=== PATIENT | male | born 2000 | race African-American/Black ===

== ENCOUNTER 2023-10-27 21:27 | Emergency (ER) | payer SELFPAY ==
[~2023-10-27] VITALS: Ht 177.8 cm; Wt 75.0 kg
[2023-10-27 21:37] VITALS: O2SAT 98
[2023-10-27 21:53] VITALS: BP 103/70; PULSE 64; RESP 18; TEMP 97.9; O2SAT 99
[2023-10-27] MEDS: KETOROLAC 30MG/ML VIAL IM ONE (23:00)
== END 2023-10-28 02:58 | disposition left against medical advice (07) ==
LOC: ER 21:27
DX: M79.641 Pain in right hand (principal); M25.531 Pain in right wrist
CPT/HCPCS: 99284; 73110; 73130; J1885

== ENCOUNTER 2023-11-03 08:19 | Emergency (ER) | payer SELFPAY ==
[~2023-11-03] VITALS: Ht 177.8 cm; Wt 75.0 kg
[2023-11-03 08:26] VITALS: O2SAT 100
[2023-11-03 08:56] VITALS: BP 122/71; PULSE 65; RESP 18; TEMP 36.72516; O2SAT 100
== END 2023-11-03 08:56 | disposition home or self-care (01) ==
LOC: ER 08:19
DX: M25.532 Pain in left wrist (principal)
CPT/HCPCS: 99281